=== PATIENT | male | born 1950 | race Caucasian/White ===

== ENCOUNTER → 2024-01-23 | Outpatient (CLI) | payer MEDICARE, OTHER | END | disposition home or self-care (01) | LOC: RAD 11:36 | PROVIDERS: ATTEND Internal Medicine Nephrology | DX: M17.12 Unilateral primary osteoarthritis, left knee (principal) | CPT/HCPCS: 73562 ==

== ENCOUNTER → 2025-03-12 | Outpatient (CLI) | payer MEDICARE, OTHER | END | disposition home or self-care (01) | LOC: RAD 12:51 | PROVIDERS: ATTEND Internal Medicine Nephrology | DX: M17.0 Bilateral primary osteoarthritis of knee (principal); M25.861 Other specified joint disorders, right knee; M76.892 Other specified enthesopathies of left lower limb, excluding foot; M76.891 Other specified enthesopathies of right lower limb, excluding foot | CPT/HCPCS: 73562 ==